=== PATIENT | female | born 1995 | race Two or more races ===

== ENCOUNTER 2018-08-30 16:02 | Emergency (ER) | payer OTHER ==
[~2018-08-30] VITALS: Ht 154.9 cm; Wt 46.3 kg
[~2018-08-30 16:02] MED LIST: ATABEX PRENATAL1 TAB; FOLIC ACID1 MG; PRENATAL1 TAB; VISTARIL25 MG PO
== END 2018-08-30 19:53 | disposition home or self-care (01) ==
LOC: ER 16:02
DX: O20.0 Threatened abortion (principal)

== ENCOUNTER 2018-09-27 13:11 | Emergency (ER) | payer OTHER ==
[~2018-09-27] VITALS: Ht 154.9 cm; Wt 45.4 kg
== END 2018-09-27 17:44 | disposition home or self-care (01) ==
LOC: ER 13:11
DX: O20.0 Threatened abortion (principal)

== ENCOUNTER 2021-03-09 16:14 | Emergency (ER) | payer OTHER ==
[~2021-03-09] VITALS: Ht 154.9 cm; Wt 47.6 kg
[2021-03-09] MEDS ORDERED: FLUCONAZOLE150 MG PO (19:05)
== END 2021-03-09 19:24 | disposition home or self-care (01) ==
LOC: ER 16:14
DX: N93.9 Abnormal uterine and vaginal bleeding, unspecified (principal); N77.1 Vaginitis, vulvitis and vulvovaginitis in diseases classified elsewhere

== ENCOUNTER 2022-01-27 18:17 | Emergency (ER) | payer OTHER ==
[~2022-01-27] VITALS: Ht 154.9 cm; Wt 45.4 kg
[~2022-01-27 18:17] MED LIST changes: +FLUCONAZOLE150 MG PO
== END 2022-01-28 02:14 | disposition home or self-care (01) ==
LOC: ER 18:17
DX: N83.209 Unspecified ovarian cyst, unspecified side (principal)

== ENCOUNTER 2022-08-01 10:29 | Outpatient (CLI) | payer OTHER | END 2022-08-01 11:37 | disposition home or self-care (01) | LOC: PRENATAL 10:29 | PROVIDERS: ATTEND Obstetrics & Gynecology Maternal & Fetal Medicine | DX: O35.9XX0 Maternal care for (suspected) fetal abnormality and damage, unspecified, not applicable or unspecified (principal); O35.3XX0 Maternal care for (suspected) damage to fetus from viral disease in mother, not applicable or unspecified; Z3A.19 19 weeks gestation of pregnancy ==

== ENCOUNTER → 2022-08-19 | Emergency (ER) | payer OTHER ==
[~2022-08-19] VITALS: Ht 154.9 cm; Wt 51.3 kg
[~2022-08-19] MED LIST changes: +MONTELUKAST SODI4 M1; +PRENATABS RX T1 EACH PO
== END | disposition left against medical advice (07) ==
LOC: ER 12:22
DX: Z53.21 Procedure and treatment not carried out due to patient leaving prior to being seen by health care provider (principal)

== ENCOUNTER 2022-10-31 09:52 | Outpatient (CLI) | payer OTHER | END 2022-10-31 10:47 | disposition home or self-care (01) | LOC: PRENATAL 09:52 | PROVIDERS: ATTEND Obstetrics & Gynecology Maternal & Fetal Medicine | DX: O35.3XX0 Maternal care for (suspected) damage to fetus from viral disease in mother, not applicable or unspecified (principal); O26.849 Uterine size-date discrepancy, unspecified trimester; O36.8199 Decreased fetal movements, unspecified trimester, other fetus; Z3A.32 32 weeks gestation of pregnancy ==

== ENCOUNTER 2022-11-25 16:57 | Inpatient (IN) | payer OTHER ==
[~2022-11-25] VITALS: Ht 154.9 cm; Wt 61.7 kg
[2022-11-25] MEDS ORDERED: ZYRTEC10 M3 PO (17:12)
== END 2022-11-29 08:48 | disposition home or self-care (01) | DRG 833 ==
LOC: OBS/DEL 16:57 → LDR 11-26 08:09 → OB/GYN 11-27 13:06
PROVIDERS: ADMIT Obstetrics & Gynecology; ATTEND Obstetrics & Gynecology
PROC: 4A1HXCZ Monitoring of Products of Conception, Cardiac Rate, External Approach (ICD-10-PCS; principal; 2022-11-26)
PROC: BY4FZZZ Ultrasonography of Third Trimester, Single Fetus (ICD-10-PCS; 2022-11-28)
DX: O60.03 Preterm labor without delivery, third trimester (principal); O26.843 Uterine size-date discrepancy, third trimester; O36.8130 Decreased fetal movements, third trimester, not applicable or unspecified; Z3A.36 36 weeks gestation of pregnancy; Z20.822 Contact with and (suspected) exposure to COVID-19

== ENCOUNTER 2022-12-11 12:23 | Inpatient (IN) | payer OTHER ==
[~2022-12-11] VITALS: Ht 154.9 cm; Wt 61.7 kg
[~2022-12-11 12:23] MED LIST changes: +ZYRTEC10 M3 PO
[2022-12-11] MEDS ORDERED: PRENATAL TABLE1 EAC1 PO (13:00)
[2022-12-11] MEDS ORDERED: SINGULAIR4 M1 PO (13:00)
== END 2022-12-14 13:51 | disposition home or self-care (01) | DRG 807 ==
LOC: LDR 12:23 → OB/GYN 12-12 03:15
PROVIDERS: ADMIT Obstetrics & Gynecology; ATTEND Obstetrics & Gynecology
PROC: 3E033VJ Introduction of Other Hormone into Peripheral Vein, Percutaneous Approach (ICD-10-PCS; 2022-12-11)
PROC: 3E0P7VZ Introduction of Hormone into Female Reproductive, Via Natural or Artificial Opening (ICD-10-PCS; 2022-12-11)
PROC: 4A1HXCZ Monitoring of Products of Conception, Cardiac Rate, External Approach (ICD-10-PCS; 2022-12-11)
PROC: 10E0XZZ Delivery of Products of Conception, External Approach (ICD-10-PCS; principal; 2022-12-12)
DX: O42.12 Full-term premature rupture of membranes, onset of labor more than 24 hours following rupture (principal); Z37.0 Single live birth; Z3A.38 38 weeks gestation of pregnancy; Z20.822 Contact with and (suspected) exposure to COVID-19